=== PATIENT | male | born 1975 | race Hispanic/Latino ===

== ENCOUNTER 2018-07-28 22:48 | Emergency (ER) | payer SELFPAY ==
[2018-07-28] MEDS ORDERED: hydrOXYzine 25 MG TAB PO SCH (23:45)
[2018-07-28] MEDS ORDERED: hydrOXYzine 25 MG TAB ONE (23:54)
== END 2018-07-28 23:59 | disposition home or self-care (01) ==
LOC: ERS 22:48
DX: L23.7 Allergic contact dermatitis due to plants, except food (principal); B35.3 Tinea pedis; F32.9 Major depressive disorder, single episode, unspecified; F41.9 Anxiety disorder, unspecified; I10 Essential (primary) hypertension; Z79.899 Other long term (current) drug therapy
CPT/HCPCS: 99283

== ENCOUNTER 2021-06-24 21:24 | Emergency (ER) | payer SELFPAY ==
[2021-06-24] MEDS ORDERED: Lorazepam 1 MG TAB ONE (23:21)
== END 2021-06-25 00:57 ==
LOC: EEVIPCON 21:24 → ERS 21:24
DX: S01.01XA Laceration without foreign body of scalp, initial encounter (principal); I10 Essential (primary) hypertension; R73.03 Prediabetes; Y92.148 Other place in prison as the place of occurrence of the external cause; Z79.899 Other long term (current) drug therapy; W06.XXXA Fall from bed, initial encounter
CPT/HCPCS: 12002; 70450; 72125